=== PATIENT | female | born 1980 | race Caucasian/White ===

== ENCOUNTER 2019-02-06 05:20 | Inpatient (IN) | payer MEDICAID ==
[2019-02-06] MEDS ORDERED: OXYTOCIN 30 UNITS/LR 500 ML IV ×2 (06:00→11:00)
[2019-02-06] MEDS ORDERED: CARBOPROST 250 MCG INJ IM ×2 (06:00→11:00)
[2019-02-06] MEDS ORDERED: MISOPROSTOL 200 MCG TAB PR ×2 (06:00→11:00)
[2019-02-06] MEDS ORDERED: METHYLERGONOVINE 0.2 MG INJ IM ×2 (06:00→11:00)
[2019-02-06] MEDS ORDERED: CEFAZOLIN 2 GM/50 ML (PMX) 50 ML IVPB (06:00)
[2019-02-06] MEDS: LACTATED RINGER'S 1,000 ML IV ×2 (06:14→07:07)
[2019-02-06 06:43] LABS: ADD MAN DIFF? NO
[2019-02-06 06:46] LABS: WHITE BLOOD COUNT 7.2 10^3/ul (4.8-10.8)
[2019-02-06 06:46] LABS: BASOPHILS % 0.6 % (0.0-2.0); EOSINOPHILS % 0.4 % (0.0-7.0); HEMATOCRIT 25.8 % (37.0-47.0); HEMOGLOBIN 8.5 g/dl (12.0-16.0); LYMPHOCYTES # 1.9 10^3/ul (0.8-2.9); LYMPHOCYTES % 25.8 % (15.0-51.0); MEAN CORPUSCULAR HEMOGLOBIN 29.1 pg (29.0-33.0); MEAN CORPUSCULAR HGB CONC 32.9 g/dl (32.0-37.0); MEAN CORPUSCULAR VOLUME 88.4 fl (82.0-101.0); MEAN PLATELET VOLUME 12.7 fl (7.4-10.4); MONOCYTE # 0.5 10^3/ul (0.3-0.9); MONOCYTES % 7.2 % (0.0-11.0); NEUTROPHIL # 4.7 10^3/ul (1.6-7.5); PLATELET COUNT 136 10^3/UL (140-415); RED BLOOD COUNT 2.92 10^6/ul (4.20-5.40); RED CELL DISTRIBUTION WIDTH 13.2 % (11.5-14.5)
[2019-02-06 07:15] LABS: INR 0.98; PROTIME 13.1 Sec (11.9-14.9)
[2019-02-06 07:16] LABS: PARTIAL THROMBOPLASTIN TIME 24.4 Sec (23.0-35.0)
[2019-02-06 07:27] LABS: GLUCOSE 83 mg/dl (70-220)
[2019-02-06 07:52] LABS: HEPATITIS B SURFACE ANTIGEN NEGATIVE (NEGATIVE)
[2019-02-06] MEDS: ONDANSETRON 4 MG INJ IV (08:57)
[2019-02-06] MEDS: CITRIC ACID/NA CITRATE 30 ML CUP PO (08:57)
[2019-02-06] MEDS ORDERED: METOCLOPRAMIDE 10 MG INJ (09:24)
[2019-02-06] MEDS ORDERED: OXYTOCIN 10 UNIT INJ (09:24)
[2019-02-06] MEDS ORDERED: FENTAnyl 50 MCG/ML VIAL (09:24)
[2019-02-06] MEDS ORDERED: morphine SULFATE/PF (10 MG/10 ML) INJ (09:24)
[2019-02-06] MEDS: CEFAZOLIN 2 GM/50 ML (PMX) 50 ML IVPB ×2 (09:29→18:58)
[2019-02-06] MEDS ORDERED: DIPHENHYDRAMINE 50 MG INJ IV ×2 (10:30)
[2019-02-06] MEDS ORDERED: TRIMETHOBENZAMIDE 100 MG/ML VIAL IM ×2 (10:30)
[2019-02-06] MEDS ORDERED: NALBUPHINE HCL (10 MG/1 ML) INJ IV (10:30)
[2019-02-06] MEDS ORDERED: OXYCODONE/ACETAMINOPHEN (5/325) TAB PO ×2 (10:30)
[2019-02-06] MEDS ORDERED: ALBUTEROL 0.083% (NEB) 2.5 MG/3 ML AMP HHN (10:30)
[2019-02-06] MEDS ORDERED: IPRATROPIUM (NEB) 0.5 MG/2.5 ML AMP HHN (10:30)
[2019-02-06] MEDS ORDERED: EPHEDrine SULFATE 50 MG/5 ML SYG IV (10:30)
[2019-02-06] MEDS ORDERED: MIDAZOLAM 1 MG/ML 2 ML INJ IV (10:30)
[2019-02-06] MEDS ORDERED: hydrALAzine 20 MG INJ IV (10:30)
[2019-02-06] MEDS ORDERED: NALOXONE (0.4 MG/ML) INJ IV (10:30)
[2019-02-06] MEDS ORDERED: FENTAnyl 50 MCG/ML VIAL IV ×3 (10:30)
[2019-02-06] MEDS ORDERED: LABETALOL HCL 20MG INJ IV (10:30)
[2019-02-06] MEDS ORDERED: MEPERIDINE 25 MG INJ IV (10:30)
[2019-02-06] MEDS ORDERED: ONDANSETRON 4 MG INJ IV ×2 (10:30)
[2019-02-06] MEDS ORDERED: morphine 2 MG INJ IV ×2 (10:30)
[2019-02-06] MEDS: OXYTOCIN 30 UNITS/LR 500 ML IV ×2 (10:38→13:34)
[2019-02-06] MEDS ORDERED: NACL 0.9% 3 ML SYG IV (11:00)
[2019-02-06] MEDS: KETOROLAC 30 MG INJ IV ×2 (11:15→17:46)
[2019-02-06 11:43] LABS: IMMEDIATE SPIN CROSSMATCH 1 2
[2019-02-06 15:01] LABS: RAPID PLASMA REAGIN NONREACTIVE (NR)
[2019-02-06] MEDS: ACCU-CHEK XX ×2 (20:00→20:10)
[2019-02-07] MEDS: KETOROLAC 30 MG INJ IV ×2 (00:26→08:47)
[2019-02-07] MEDS: CEFAZOLIN 2 GM/50 ML (PMX) 50 ML IVPB ×2 (03:07→11:09)
[2019-02-07 07:50] LABS: ADD MAN DIFF? NO
[2019-02-07 07:53] LABS: BASOPHIL # 0.1 10^3/ul (0.0-0.1); BASOPHILS % 0.5 % (0.0-2.0); EOSINOPHILS % 0.3 % (0.0-7.0); HEMATOCRIT 32.4 % (37.0-47.0); HEMOGLOBIN 10.7 g/dl (12.0-16.0); LYMPHOCYTES # 1.2 10^3/ul (0.8-2.9); LYMPHOCYTES % 13.2 % (15.0-51.0); MEAN CORPUSCULAR HEMOGLOBIN 28.8 pg (29.0-33.0); MEAN CORPUSCULAR VOLUME 87.3 fl (82.0-101.0); MEAN PLATELET VOLUME 12.6 fl (7.4-10.4); MONOCYTE # 0.6 10^3/ul (0.3-0.9); MONOCYTES % 6.6 % (0.0-11.0); NEUTROPHIL # 7.4 10^3/ul (1.6-7.5); NEUTROPHILS % 78.9 % (39.0-77.0); PLATELET COUNT 142 10^3/UL (140-415); RED BLOOD COUNT 3.71 10^6/ul (4.20-5.40); RED CELL DISTRIBUTION WIDTH 13.4 % (11.5-14.5)
[2019-02-07 07:53] LABS: WHITE BLOOD COUNT 9.4 10^3/ul (4.8-10.8)
[2019-02-07] MEDS: ACCU-CHEK XX ×4 (07:53→20:39)
[2019-02-07] MEDS ORDERED: GLUCOSE GEL 15 GRAM TUBE BUCCAL (15:30)
[2019-02-07] MEDS ORDERED: GLUCOSE GEL 15 GRAM TUBE PO ×2 (15:30)
[2019-02-07] MEDS ORDERED: GLUCAGON 1 MG INJ IM (15:30)
[2019-02-07] MEDS ORDERED: DEXTROSE 50% 50 ML SYRINGE IV ×2 (15:30)
[2019-02-07] MEDS: OXYCODONE/ACETAMINOPHEN (5/325) TAB PO ×2 (16:11→23:18)
[2019-02-07 16:33] LABS: HEMOGLOBIN A1C 6.1 % (0-5.9)
[2019-02-07] MEDS: IBUPROFEN 600 MG TAB PO ×2 (17:47→23:49)
[2019-02-07] MEDS: INSULIN ASPART [NOVOLOG] 3 ML PEN SC ×4 (18:07→21:01)
[2019-02-07] MEDS: INSULIN GLARGINE [LANTus] (100 UNITS/ML) SYG SC (21:38)
[2019-02-07] MEDS: DIPHENHYDRAMINE 1%/ZINC 28.3 GM CR TOP (21:38)
[2019-02-07] MEDS: LANOLIN HPA 1 PKT TOP (23:18)
[2019-02-08] MEDS: ACCU-CHEK XX (02:00)
[2019-02-08] MEDS: OXYCODONE/ACETAMINOPHEN (5/325) TAB PO ×4 (04:53→20:31)
[2019-02-08] MEDS: IBUPROFEN 600 MG TAB PO ×3 (05:40→17:55)
[2019-02-08 08:37] LABS: ADD MAN DIFF? NO
[2019-02-08 08:43] LABS: BASOPHILS % 0.3 % (0.0-2.0); EOSINOPHILS # 0.1 10^3/ul (0.0-0.5); EOSINOPHILS % 1.1 % (0.0-7.0); HEMATOCRIT 31.3 % (37.0-47.0); HEMOGLOBIN 10.4 g/dl (12.0-16.0); LYMPHOCYTES % 22.5 % (15.0-51.0); MEAN CORPUSCULAR HEMOGLOBIN 29.3 pg (29.0-33.0); MEAN CORPUSCULAR HGB CONC 33.2 g/dl (32.0-37.0); MEAN CORPUSCULAR VOLUME 88.2 fl (82.0-101.0); MEAN PLATELET VOLUME 12.1 fl (7.4-10.4); MONOCYTE # 0.6 10^3/ul (0.3-0.9); MONOCYTES % 6.6 % (0.0-11.0); NEUTROPHIL # 6.1 10^3/ul (1.6-7.5); NEUTROPHILS % 68.9 % (39.0-77.0); PLATELET COUNT 162 10^3/UL (140-415); RED BLOOD COUNT 3.55 10^6/ul (4.20-5.40); RED CELL DISTRIBUTION WIDTH 13.4 % (11.5-14.5)
[2019-02-08 08:43] LABS: WHITE BLOOD COUNT 8.8 10^3/ul (4.8-10.8)
[2019-02-08 09:05] LABS: ANION GAP 6 (5-13); BLOOD UREA NITROGEN 8 mg/dl (7-20); CALCIUM 8.2 mg/dl (8.4-10.2); CARBON DIOXIDE 23 mmol/L (21-31); CHLORIDE 107 mmol/L (97-110); CHOL/HDL RATIO 2.7 RATIO; CHOLESTEROL 168 mg/dl (100-200); CREATININE 0.49 mg/dl (0.44-1.00); Estimated GFR > 60 mL/min (>60); GLUCOSE 161 mg/dl (70-220); HDL CHOLESTEROL 61 mg/dl (34-82); LDL CHOLESTEROL,CALCULATED 72 mg/dl; MAGNESIUM 1.6 mg/dl (1.7-2.5); POTASSIUM 3.7 mmol/L (3.5-5.1); SODIUM 136 mmol/L (135-144); TRIGLYCERIDES 176 mg/dl (0-149)
[2019-02-08] MEDS: INSULIN ASPART [NOVOLOG] 3 ML PEN SC ×7 (09:14→21:23)
[2019-02-08] MEDS: DIPHENHYDRAMINE 1%/ZINC 28.3 GM CR TOP ×2 (10:05→21:25)
[2019-02-08] MEDS: INSULIN GLARGINE [LANTus] (100 UNITS/ML) SYG SC (20:17)
[2019-02-09] MEDS: IBUPROFEN 600 MG TAB PO ×4 (00:05→17:57)
[2019-02-09] MEDS: ACCU-CHEK XX (02:06)
[2019-02-09] MEDS: INSULIN ASPART [NOVOLOG] 3 ML PEN SC ×7 (08:05→22:00)
[2019-02-09 08:56] LABS: RUBELLA ANTIBODY - IGG 1.49 index
[2019-02-09] MEDS: OXYCODONE/ACETAMINOPHEN (5/325) TAB PO ×2 (09:04→14:11)
[2019-02-09] MEDS: DIPHENHYDRAMINE 1%/ZINC 28.3 GM CR TOP ×2 (09:04→22:07)
[2019-02-09 12:51] LABS: RUBELLA ANTIBODY - IGM <20.00 AU/mL
[2019-02-09] MEDS: BISACODYL (EC) 5 MG TAB PO (14:07)
[2019-02-09] MEDS: INSULIN GLARGINE [LANTus] (100 UNITS/ML) SYG SC (20:22)
[2019-02-10] MEDS: IBUPROFEN 600 MG TAB PO ×3 (00:56→11:34)
[2019-02-10] MEDS: ACCU-CHEK XX (02:00)
[2019-02-10] MEDS: INSULIN ASPART [NOVOLOG] 3 ML PEN SC ×2 (08:05)
[2019-02-10] MEDS: MEASLES,MUMPS,RUBELLA VACCINE INJ SC* (09:15)
[2019-02-10] MEDS: DIPHENHYDRAMINE 1%/ZINC 28.3 GM CR TOP (09:42)
== END 2019-02-10 12:02 | disposition home or self-care (01) | DRG 783 ==
LOC: L-D 05:20 → PP1 13:16
PROVIDERS: Obstetrics & Gynecology; Pediatrics
PROC: 10D00Z1 Extraction of Products of Conception, Low, Open Approach (ICD-10-PCS; principal; 2019-02-06 11:00)
PROC: 0UB70ZZ Excision of Bilateral Fallopian Tubes, Open Approach (ICD-10-PCS; 2019-02-06 11:00)
PROC: 30233N1 Transfusion of Nonautologous Red Blood Cells into Peripheral Vein, Percutaneous Approach (ICD-10-PCS; 2019-02-06 11:00)
DX: O34.219 Maternal care for unspecified type scar from previous cesarean delivery (principal); O24.12 Pre-existing type 2 diabetes mellitus, in childbirth; O24.13 Pre-existing type 2 diabetes mellitus, in the puerperium; E11.65 Type 2 diabetes mellitus with hyperglycemia; O99.02 Anemia complicating childbirth; D64.9 Anemia, unspecified; O99.214 Obesity complicating childbirth; E66.9 Obesity, unspecified; O26.53 Maternal hypotension syndrome, third trimester; E11.649 Type 2 diabetes mellitus with hypoglycemia without coma; L25.9 Unspecified contact dermatitis, unspecified cause; Z3A.38 38 weeks gestation of pregnancy; Z37.0 Single live birth; Z30.2 Encounter for sterilization; Z79.4 Long term (current) use of insulin
CPT/HCPCS: 36430; 76815; 80048; 80061; 82947; 82962; 83036; 83735; 84443; 85025; 85610; 85730; 86592; 86762; 86850; 86900; 86901; 86920; 87340; 88302; 99464